=== PATIENT | male | born 1940 ===

== ENCOUNTER 2018-04-04 08:16 | Outpatient (RCR) | payer MEDICARE ==
[2018-04-04] MEDS ORDERED: LIDOCAINE VISC 2% SOLN 15 ML UDC ONE ×2 (11:55→17:46)
== END 2018-04-15 ==
LOC: WCC 08:16
PROVIDERS: ATTEND Plastic Surgery
DX: L89.302 Pressure ulcer of unspecified buttock, stage 2 (principal); Z74.01 Bed confinement status

== ENCOUNTER 2018-05-02 11:49 | Outpatient (RCR) | payer MEDICARE | END 2018-05-15 | LOC: WCC 11:49 | PROVIDERS: ATTEND Plastic Surgery | DX: L89.322 Pressure ulcer of left buttock, stage 2 (principal); L89.302 Pressure ulcer of unspecified buttock, stage 2; L89.301 Pressure ulcer of unspecified buttock, stage 1; Z74.01 Bed confinement status ==